=== PATIENT | female | born 1980 | race Caucasian/White ===

== ENCOUNTER 2025-06-18 08:22 | Outpatient (CLI) | payer MEDICARE, MEDICAID, SELFPAY ==
--- OUTSIDE RECORDS SUMMARY | 2020-09-22 06:30 | XMS_ITS | Continuity of Care Document ---
Author Organization [facility] Address [address] [facility] [address] [place] [address] Phone Care Team Providers Care Laborer Mine Name Role Phone Sachi Deng Unavailable Unavailab le Allergies, Adverse Reactions, Alerts Substance Reaction Status Criticality levofloxacin Active No Information Medications Medication Instructions Dosage Effective Dates (start - stop) Status Comments Ultram 50 mg tablet take 1 tablet (50MG) by oral route every 6 hours as needed - Active cyclobenzaprine 10 mg tablet take 1 tablet by oral route 2 times every day 10 MG - Active Mobic 15 mg tablet take 1 tablet by ora l route every day - Active pregabalin 50 mg capsule - A ctive estradiol 1 mg tablet - Acti ve tramadol 50 mg tablet - Acti ve Narcan 4 mg/actuation nasal spray - Active topiramate 25 mg tablet - Ac tive trazodone 50 mg tablet - Act saad alprazolam 0.5 mg tablet - A ctive escitalopram 10 mg tablet - Active Vraylar 6 mg capsule - Activ e Bystolic 5 mg tablet - Activ e gabapentin 600 mg tablet - A ctive omeprazole 20 mg capsule,delayed release - Active duloxetine 30 mg capsule,delayed release - Active butalbital-acetaminophen -caffeine 50 mg-325 mg-40 mg tablet - Active diclofenac sodium 75 mg tablet,delayed release - Active ondansetron HCl 4 mg tablet - Active desoximetasone 0.05 % topical ointment - Active Procedures Procedure Date OFFICE/OUTPATIENT VISIT EST POSTOP FOLLOW-UP VISIT X-RAY HIP UNI W PELVIS 2-3 VIEWS 2019 POSTOP FOLLOW-UP VISIT X-RAY EXAM HIP UNI W PELVIS 2-3 VIEWS Se POSTOP FOLLOW-UP VISIT TREAT THIGH FRACTURE Advance Directives Directive Yes / No Effective Date File Name No Information Encounters Encounter Description Practice Location Reason(s) For Visit Diagnoses Date Provider Providers Copied on Encounter OFFICE/OUTPAT IENT VISIT EST [facility], [address], [address], [place] tel:[phone] [facility] Displaced fracture of base of neck of right femur, subsequent encounter for closed fracture with routine healingSurgery follow-upAcute low back pain, unspecified back pain laterality, unspecified whether sciatica presentSpinal stenosis of lumbar region, unspecified whether neurogenic claudication present 0 Boxdorfer Sachi. [address], [id number]. tel:[phone] [facility], [address], [address], [place] tel:[phone] [facility] Displaced fracture of base of neck of right femur, subsequent encounter for closed fracture with routine healing 0 Boxdorfer Sachi. [address], [id number]. tel:[phone] [facility], [address], [address], [place] tel:[phone] [facility] No Information 0 Jessica Hooks. [address] [place], [place], [id number]. tel:[phone] [facility], [address], [address], [place] tel:[phone] [facility] No Information 3 0 Fissel Jessee. [address] [place], [place], [id number]. tel:[phone] [facility], [address], [address], [place] tel:[phone] [facility] Displaced fracture of base of neck of right femur, subsequent encounter for closed fracture with routine healing Jul-0 1-202 0 Boxdorfer Sachi. [address], [id number]. tel:[phone] [facility], [address], [address], [place] tel:[phone] [facility] No Information Jun-0 8-202 0 Fissel Jessee. [address] [place], [place], [id number]. tel:[phone] [facility], [address], [address], [place] tel:[phone] [facility] Displaced fracture of base of neck of right femur, subsequent encounter for closed fracture with routine healingBody mass index (BMI) 40.0-44.9, adult Sep-0 3202 0 Boxdorfer Sachi. [address], [id number]. tel:[phone] Referring Provider: Alexis Hernadez, [address] [place] [address] , [place], [address]. tel:[phone] [facility], [address], [address], [place] tel:[phone] [facility] Closed displaced basicervical fracture of right femur, initial encounter 0-202 0 Fissel Jessee. [address] [place], [place], [id number]. tel:[phone] Family History Family Member Type Diagnosis Age At Onset Mother Problem malignant neopla sm of breast in first degree relative Father Problem Alive and well Payers Payer name Insurance type Covered green party ID Aggie winn(s) Medicare [id number] [id number] Social History Type Description Quantity Date Captured Comments Alcohol Use Details Unknown Caffeine Use Details Unknown Tobacco Use Status No Information Smoking Status No Information Sex Female Chief Complaint And Reason For Visit No Information Reason For Referral Reason For Referral No Information Plan Of Treatment Date Type Action Status Referral Ordered: X-RAY HIP UNI W PELVIS 2-3 VIEWS RT ordered Referral Ordered: X-RAY EXAM HIP UNI W PELVIS 2-3 VIEWS RT ordered History Of Present Illness Encounter Date Complaint History Of Prese nt Illness No Information Functional Status Date Functional Assessmen t No Information Instructions Date Instruction Additional Infor mation Discussed treatment options Rela deon to Surgery follow-up INFORM PHYSCIAN OF IINCREASED PA IN Related to Displaced fracture of base of neck of right femur, subsequent encounter for closed fracture with routine healing INFORM PHYSICIAN OF INCREASED PA IN Related to Displaced fracture of base of neck of right femur, subsequent encounter for closed fracture with routine healing Giving encouragement to exercise Related to Body mass index (BMI) 40.0-44.9, adult INFORM PHYSICIAN OF INCREASED PA IN Related to Displaced fracture of base of neck of right femur, subsequent encounter for closed fracture with routine healing Assessments Type Assessment Date assessment Displaced fracture o f base of neck of right femur, subsequent encounter for closed fracture with routine healing assessment Surgery follow-up assessment Acute low back pain, unspecified back pain laterality, unspecified whether sciatica present assessment Spinal stenosis of l umbar region, unspecified whether neurogenic claudication present Patient Care Teams Name Effective Dates (start - stop) Status Members No Information
--- OUTSIDE RECORDS SUMMARY | 2025-06-18 08:39 | XMS_ITS | Clinical Summary ---
Author Organization [facility] [address] [place] [address] [place] [phone] Care Team Providers Care Supervisor Drapery Hanging Name Role Phone Kush Melissa MD Primary Care Provi alvarado Allergies Active Allergy Reactions Criticality Noted Date Comments Levofloxacin Hives Medium Ziprasidone Hives,Other (See comments) Medium 05/24/20 15 Medications acetaminophen (TYLENOL) 500 mg tablet Take 1 tablet (500 mg total) by mouth every 6 (six) hours as needed 2 Active estradioL (ESTRACE) 0.5 mg tablet Take 1 tablet (0.5 mg total) by mouth daily 3 Active SUMAtriptan (IMITREX) 100 mg tabletIndications :Migraine Take 1 tablet (100 mg total) by mouth once as needed for migraine May repeat after 2 hours. 27 tablet [address] (PROTONIX) 40 mg EC tablet Take 1 tablet (40 mg total) by mouth daily 90 tablet 3 4 Active linaCLOtide (Linzess) 72 mcg capsuleIndication s:Drug-induced constipation Take 1 capsule (72 mcg total) by mouth daily Take without food 90 capsule 3 5 Active rosuvastatin (CRESTOR) 20 mg tablet Take 1 tablet (20 mg total) by mouth daily 90 tablet 1 5 Active celecoxib (CeleBREX) 200 mg capsuleIndication s:Fibromyalgia Take 1 capsule (200 mg total) by mouth 2 (two) times a day as needed for pain 180 capsule 3 5 Active amitriptyline (ELAVIL) 150 mg tabletIndications :Fibromyalgia,Ins omnia, unspecified type Take 1 tablet (150 mg total) by mouth nightly 90 tablet 3 5 Active cariprazine (Vraylar) 4.5 mg capsule capsuleIndication s:Mood disorder Take 1 capsule (4.5 mg total) by mouth daily 30 capsule 5 5 Active gabapentin (NEURONTIN) 400 mg capsuleIndication s:Fibromyalgia Take 1 capsule (400 mg total) by mouth 3 (three) times a day 270 capsule 3 5 Active clonazePAM (KlonoPIN) 0.5 mg tablet Take 1 tablet (0.5 mg total) by mouth 2 (two) times a day as needed for anxiety 60 tablet 5 5 Active buprenorphine-nal oxone (SUBOXONE) 2-0.[address] 1 Film under the tongue daily 30 Film 5 5 Active prochlorperazine (COMPAZINE) 5 mg tabletIndications :Nausea and Vomiting Take 1 tablet (5 mg total) by mouth every 8 (eight) hours as needed for nausea or vomiting 20 tablet 3 5 Active nicotine polacrilex (NICORETTE) 4 mg gum Chew 1 each (4 mg total) as needed for smoking cessation Active DULoxetine DR (CYMBALTA) 30 mg capsuleIndication s:Fibromyalgia,Mo od disorder 1 cap PO daily x 1 week, then 2 caps daily 60 capsule 5 Active minocycline (MINOCIN,DYNACIN) 100 mg capsuleIndication s:Hidradenitis suppurativa Take 1 capsule (100 mg total) by mouth daily 90 capsule 1 5 Active fluticasone furoate-vilantero L (BREO ELLIPTA) 100-25 mcg/dose diskus inhalerIndication s:Maintenance Therapy for Asthma Inhale 1 puff daily Rinse mouth with water after use. Do not swallow. 1 each 5 Active Active Problems Problem Noted Date Diagnosed Date Chronic migraine without aur a without status migrainosus, not intractable 11/30/2023 Irregular periods 11/29/2023 Mucopurulent chronic bronchitis 09/25/2023 Cigarette nicotine dependence without complicati on 06/14/2023 Mild intermittent asthma with exacerbation 06/14 Cyclical vomiting syndrome 07/05/2022 Postcholecystectomy syndrome 07/05/2022 Chronic bilateral low back pain with bilateral s ciatica 01/04/2022 Borderline personality disorder 02/06/2021 PTSD (post-traumatic stress disorder) 02/06/2021 Autoimmune hemolytic anemia 08/05/2020 Insomnia 06/15/2020 History of paroxysmal supraventricular tachycard ia 09/18/2019 Polysubstance abuse 09/18/2019 Fibromyalgia 07/03/2019 Hidradenitis suppurativa 07/03/2019 Hypercholesterolemia 01/09/2019 ALEXIS (obstructive sleep apnea) 06/13/2017 Obstructive sleep apnea syndrome 06/13/2017 Gastro-esophageal reflux disease without esophag itis 04/03/2017 Supraventricular tachycardia 08/27/2014 Resolved Problems Problem Noted Date Diagnosed Date Resolved Date Female genital symptoms 11/29/2023 09/0 02/2024 Leukocytosis 08/11/2022 06/14/2023 Epigastric pain 07/05/2022 06/20/2024 Spinal stenosis of lumbar region 01/04/2022 06/14/2023 Tobacco user 01/04/2022 06/14/2023 Acute low back pain 01/04/2022 06/14/20 23 Closed basicervical fracture of femur 01/04/2022 06/14/2023 Sleep apnea 01/04/2022 06/14/2023 Morbid (severe) obesity due to excess calories 01/04/2022 08/01/2022 Body mass index 40.0-44.9, adult ([facility]) 01/04/2022 06/14/2023 Visual disturbance 06/03/2021 Dyspnea on exertion 06/03/2021 06/14/20 Intermittent claudication 06/03/2021 Chronic bilateral low back pain with sciatica 04/21/2006/14/2023 Centrilobular emphysema 12/07/2020 08 Fatigue 12/07/2020 06/14/2023 Herpes simplex 08/05/2020 06/14/2023 Primary fibromyalgia syndrome 08/05/2020 06/14/2023 Closed displaced fracture of base of neck of right femur 06/15/2020 06/14/2023 Closed fracture of left hip 06/15/2020 06/14/2023 Bipolar 1 disorder 06/15/2020 Anxiety with somatization 09/18/2019 Bipolar I disorder with anxious distress 09/18/2019 06/14/2023 Cigarette smoker 09/18/2019 06/14/2023 Depression with somatization 09/18/2019 06/14/2023 Menorrhagia with irregular cycle 09/18/2019 06/14/2023 Dysmenorrhea 09/18/2019 06/14/2023 Obstructive sleep apnea syndrome 09/18/2019 06/14/2023 Bipolar affective disorder, current episode mixed 08/17/2019 06/14/2023 Intertrigo 07/03/2019 06/14/2023 Cellulitis of chest wall 05/31/2018 Breast lump 05/22/2018 06/20/2024 Overview (11/29/2023): Breast mass; Progress: Stable Added By: Sandra Khalil Add to Current Problems: NO ProblemStatus: Resolve Unspecified lump in breast; Progress: Stable Added By: Sandra Khalil Add to Current Problems: YES ProblemStatus: Current Breast mass; Location: None Progress: Stable Added By: Sandra Khalil Add to Current Problems: YES ProblemStatus: Current Breast mass; Location: None Progress: Stable Added By: Lucero Osorio Add to Current Problems: NO ProblemStatus: Resolve Nicotine dependence 08/28/2017 08/01/20 22 Acquired elevated diaphragm 05/16/2017 06/14/2023 Chest pain 05/16/2017 06/14/2023 Chronic cough 05/16/2017 06/14/2023 Exertional dyspnea 05/16/2017 Parasomnia 01/09/2017 08/01/2022 Abnormal findings on diagnos tic imaging of breast 10/20/2016 06/14/2023 Overview (06/14/2023): Other (abnormal) findings on radiological examination of breast; Location: None Progress: Stable Added By: Isabelle Botello Add to Current Problems: YES ProblemStatus: Current Other (abnormal) findings on radiological examination of breast; Progress: Stable Added By: Isabelle Botello Add to Current Problems: NO ProblemStatus: Resolve BMI 40.0-44.9, adult 08/31/2016 024 Snoring 08/31/2016 08/01/2022 Nonorganic sleep disorder 07/12/2016 Palpitations 08/27/2014 08/01/2022 Encounters Date Type Department Care Team Description 05/28/2025 Results Follow-Up [facility] [address] [facility] [address] [place] [address] [address] Hip Right WO Contrast 05/27/2025 Telephone [facility] [address] [facility] [address] [place] [phone] Kush Melissa MD Test Results 05/27/2025 Orders Only [facility] [address] [facility] [address] [place] [phone] Tracy Childress NP Right hip pain; Abnormal finding on imaging 05/21/2025 Telephone [facility] [address] [facility] [address] [place] [phone] Kush Melissa MD Additional Services Or Orders; Call Back 05/13/2025 Telephone [facility] [address] [facility] [address] [place] [phone] Kush Melissa MD Forms Request 05/12/2025 Results Follow-Up [facility] [address] [facility] [address] [place] [phone] Kush Melissa MD H. pylori breath test, XR Hip Right 2+ Vw 05/08/2025 11:00 AM CDT Ancillary Procedure [facility] [address] [address] Right hip pain 05/08/2025 10:55 AM CDT Lab [facility] [address] [address] Chronic vomiting 05/07/2025 1:45 PM CDT Office Visit [facility] [address] [phone] Tracy Childress NP Fibromyalgia (Primary Dx); Mood disorder; Right hip pain; Chronic back pain, unspecified back location, unspecified back pain laterality; Chronic vomiting; Hidradenitis suppurativa; Cigarette nicotine dependence without complication; Chronic bronchitis, unspecified chronic bronchitis type (HCC) 04/26/2025 Nurse Triage [facility] [address] [phone] Kush Melissa MD 04/22/2025 Telephone [facility] [address] [phone] Kush Melissa MD Symptom Based Call; Medical Question/Miscellane ous 03/24/2025 Results Follow-Up [facility] [address] [phone] Kush Melissa MD [facility] COLONOSCOPY from Last 3 Months Immunizations Immunization Administration Dates Next Due DTP 06/08/1990, 5,02/14/1983,12/13,10/04/1982 Hep A, Adult 11/14/2000 Hep A, Unspecified 11/14/2000 Influenza, Quad, Adjuvantate d, Intramuscular 11/11/2024(Deferred: Patient Refused) Influenza, Quadrivalent, Spl it, Intramuscular 03/02/2015,12/01/2014,09/01/2014,07/07,05/30/2014,05/16/2014,04/28/2014 ,03/31/2014,03/07/2014 Influenza, Unspecified 11/11/2024(Deferr ed: Patient Refused),11/11/2024(Deferred: Patient Refused),12/17/2023(Deferred: Patient Refused),06/14/2023(Deferred: Patient Refused),03/02/2015,12/01/2014, 014,07/07/2014,05/30/2014,05/16/2014,0 04/28/2014,03/31/2014,03/07/2014 MMR 06/08/1990,10/04/1982 OPV 06/08/1990, 5,02/14/1983,12/13,10/04/1982 Tdap 03/05/2022,04/09/2015,10/16/2014 Surgical History Surgery Date Site/Laterality Comments HIP SURGERY HYSTERECTOMY BILATERAL OOPHORECTOMY 10/16/2018 - 10/15/2019 FRACTURE SURGERY CHOLECYSTECTOMY JOINT REPLACEMENT SPINE SURGERY Medical History Medical History Date Comments Diabetes mellitus (HCC) Anxiety Depression Hypertension Hyperlipidemia Sleep difficulties GERD (gastroesophageal reflux disease) Hemolytic anemia SVT (supraventricular tachycardia) Fibromyalgia Bipolar 1 disorder (HCC) Lumbar stenosis History of femur fracture right Arthritis Chronic bronchitis (HCC) Emphysema of lung Migraines Sleep apnea Family History Medical History Relation Name Comments No Known Problems Brother Fibromyalgia Father No Known Problems Maternal Grandfather No Known Problems Maternal Grandmother Breast cancer Mother Megha Khalil Cancer Mother Megha Khalil Obesity Mother Megha Khalil Arthritis Mother's Sister 1 Mi, Zoila, Isa COPD Mother's Sister 2 Mi Stroke Mother's Sister 3 Zoila No Known Problems Paternal Grandfather Mental illness Paternal Grandmother Cherry Relation Name Status Comments Brother Alive Father Alive Maternal Grandfather Maternal Grandmother Mother Megha Khalil Alive Mother's Sister 1 Mi, Zoila, Isa Mother's Sister 2 Mi Mother's Sister 3 Zoila Paternal Grandfather Paternal Grandmother Cherry Social History Tobacco Use Types Packs/Day Years Used Date Smoking Tobacco: Every Day Cigarettes 0.5 30.7 Started: 1994 Vaping Smokeless Tobacco: Never Tobacco Cessation:Ready to Q uit: Not Asked; Counseling Given: Not Answered Comments:pt stated smokes 2 cig and mostly vaping 06/14/23 3 DAYS NICOTINE FREE Alcohol Use Standard Drinks/Week Comments Yes 0 (1 standard drink = 0.6 oz pur e alcohol) monthly or less AUDIT-C Answer Date Recorded Q1: How often do you have a drink containing alcohol? Never 05/12/2022 Q2: How many drinks containi ng alcohol do you have on a typical day when you are drinking? Patient does not drink Q3: How often do you have si x or more drinks on one occasion? Never 05/12/2022 PHQ-2 Answer Date Recorded PHQ-2 Total Score 4 05/07/2025 PHQ-9 Answer Date Recorded PHQ-9 Total Score 20 05/07/2025 Personal Safety Answer Date Recorded Getting School Help Needed Denies 09/25 Comments No Sex and Gender Information Value Date Recorded Sex Assigned at Not on file Legal Sex Female 8:28 PM [employer] Gender Identity Not on file Sexual Orientation Not on file Obstetrics History Last Filed Vital Signs Vital Sign Reading Time Taken Comments Blood Pressure 110/72 05/07/2025 1:26 PM CDT Pulse 96 05/07/2025 1:26 PM CDT Temperature 36.9 C (98.5 F) 03/04/2024 1:59 PM CDT Respiratory Rate 18 05/07/2025 1:26 PM CDT Oxygen Saturation 96% 05/07/2025 1:26 PM CDT Inhaled Oxygen Concentration - - Weight 88.5 kg (195 lb) 05/07/2025 1:26 PM CDT Height 152.4 cm (5') 05/07/2025 1:26 PM CDT Body Mass Index 38.08 05/07/2025 1:26 PM CDT Plan of Treatment Health Maintenance Due Date Last Done Comments Breast Cancer Screening-Mammogram 1979 Hepatitis C Screening 1979 Hepatitis B Screening 1997 Pneumococcal vaccine <65 (1 of 2 - PCV) 1998 HPV Vaccines (1 - 3-dose SCDM series) 2006 Influenza Vaccine (#1) 2025 5, 03/02/2015, 12/01/2014, Additional history exists Regular Well Visit/Exam 18-64 06/20/2025 06/20/2024, 06/14/2023, 06/13/2022 Covid-19 Vaccine ( season) 2025 04/21/2021, 03/24/2021 Postponed from 06/16/2024 (Patient declined, but will receive in the future) Depression Screening 05/07/2026 05/07/2025, 03/12/2025, 03/12/2025, Additional history exists Colon Cancer Screening-Colonoscopy 03/13/2030 03/13/2025, 07/14/2022 DTaP/Tdap/Td Vaccine (9 - Td or Tdap) 03/05/2032 03/05/2022, 04/09/2015, 10/16/2014, Additional history exists Procedures Procedure Name Priority Date/Time Associated Diagnosis Comments CT HIP RIGHT WO CONTRAST Schedule Routine, Read Routine (OP Routine) 05/22/2025 8:56 AM CDT Right hip pain Abnormal finding on imaging H. PYLORI BREATH TEST Routine 05/08/2025 11:15 AM CDT Chronic vomiting XR HIP RIGHT 2 OR 3 VIEWS Schedule Routine, Read Routine (OP Routine) 05/08/2025 11:05 AM CDT Right hip pain HM COLONOSCOPY Routine 03/13/2025 from Last 3 Months or Most Recently Relevant to Health Maintenance Results * CT Hip Right WO Contrast (05/22/2025 8:56 AM CDT) Anatomical Region Laterality Modality Lower Extremities Right Computed Tomog edgar Tracy Childress FLOOR WORKER [employer] IMG CT PROCEDURES Final Res ult * H. pylori breath test (05/08/2025 11:15 AM CDT) H. pylori, breath test Negative Negative [facility] ref [facility] Comment: Result indicates the absence of current Helicobacter pylori infection. Test Performed by: [facility] - [address] [address] Supervisor Ride Assembly: Tomer Warren Ph.D.; CLIA# [id number] Breath 05/08/2025 11:1 5 AM CDT 05/08/2025 4:19 PM CDT Tracy Childress FLOOR WORK[employer] LAB BODY FLUIDS AND STOOLS ORDERABLES Final Result RE[facility] [id number] [facility] Department [place] [address] [facility] ref Lab * XR Hip Right 2+ Vw (05/08/2025 11:05 AM CDT) Anatomical Region Laterality Modality Lower Extremities, Hip, Pelvis Right C omputed Radiography 05/15/2025 9:06 PM CDT Narrative 05/15/2025 9:09 PM CDT EXAM DESCRIPTION: 1. XR HIP RIGHT 2 OR 3 VIEWS REASON FOR STUDY: R hip pain Hardware put in right hip May 2020, right hip pain 2 months FINDINGS: Two views submitted with comparison 10/25/2022. Redemonstrated is an internally fixated right femoral neck fracture with shortening. The fracture line remains visible. Mild right hip osteoarthritis. Inferior lumbar degenerative disc disease with facet osteoarthritis. IMPRESSION: 1. Unchanged internally fixated right femoral neck fracture with shortening. The fracture line remains visible. This can be further evaluated with CT to assess the degree of bony bridging. THIS IS AN ELECTRONICALLY VERIFIED FINAL REPORT 05/15/2025 9:09 PM - Electronically signed by Jaun Terry M.D. T: Report ID: [id number] Reading Location: [place] [address] Procedure Note Jaun Terry MD - 05/15/2025 EXAM DESCRIPTION: 1. XR HIP RIGHT 2 OR 3 VIEWS REASON FOR STUDY: R hip pain Hardware put in right hip May 2020, right hip pain 2 months FINDINGS: Two views submitted with comparison 10/25/2022. Redemonstrated is an internally fixated right femoral neck fracture with shortening. The fracture line remains visible. Mild right hip osteoarthritis. Inferior lumbar degenerative disc disease with facet osteoarthritis. IMPRESSION: 1. Unchanged internally fixated right femoral neck fracture withshortening. The fracture line remains visible. This can be further evaluated with CTto assess the degree of bony bridging. THIS IS AN ELECTRONICALLY VERIFIED FINAL REPORT 05/15/2025 9:09 PM - Electronically signed by Jaun Terry M.D. T: Report ID: [id number] Reading Location: [place] [address] us Tracy Childress FLOOR WORK[employer] IMG XR PROCEDURES Final Res ult * HM COLONOSCOPY (03/13/2025) 03/13/2025 Historical Provider HEALTH MAINTENANCE Final Result from Last 3 Months or Most Recently Relevant to Health Maintenance Insurance [employer] MEDICARE IDPA IDPA [facility] MEDICARE ADVANTAGE [facility] MEDICARE Address: [address] [address] [place] [address] Care Teams Supervisor Drapery Hanging Relationship Specialty Start Date End Date Kush Melissa MD [address] [place] [address] PCP - General Family Medicine 01/27/23
--- OUTSIDE RECORDS SUMMARY | 2025-06-18 08:39 | XMS_ITS | Encounter Summary ---
Author Organization [facility] Healthcare Address [address] [place] [address] Care Team Providers Care Supervisor Tower Name Role Phone Kush Melissa MD Primary Care Provi alvarado Encounter Details Date Type Department Care Team (Late st Contact Info) Description 05/28/2025 Results Follow-Up [facility] Family Medicine [address] [place] [address] Tracy Childress NP [address] [place], [place] [id number] [place] Hip Right WO Contrast Social History Tobacco Use Types Packs/Day Years Used Date Smoking Tobacco: Every Day Cigarettes 0.5 30.7 Started: 1994 Vaping Smokeless Tobacco: Never Comments:pt stated smokes 2 cig and mostly [...] on file 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 Does message need to be routed? Yes-Action Needed documented in this encounter Plan of Treatment Not on file documented as of this encounter Visit Diagnoses Not on filedocumented in this encounter Care Teams Supervisor Tower Relationship Specialty Start Date End Date Kush Melissa MD [address] [address] PCP - General Family Medicine 01/27/23 documented as of this encounter
--- OUTSIDE RECORDS SUMMARY | 2025-06-18 08:40 | XMS_ITS | Encounter Summary ---
Author Organization [facility] Address [address] [place] [address] Phone Care Team Providers Care Tearoom Hostess Name Role Phone Ryder Chavez Primary Care Provider [phone] Kush Melissa MD Primary Care Provi alvarado Encounter Details Date Type Department Care Team (Late st Contact Info) Description 11/10/2022 Telephone [facility] Medicine Scheduling [address] [place] [address] Berna Coleman CMA Social History Tobacco Use Types Packs/Day Years Used Date Smoking Tobacco: Heavy Smoker Cigarettes 0.1 30.2 Started: 03/24/1995 Vaping Smokeless Tobacco: Never Comments:pt stated smokes 2 cig and mostly vaping Alcohol Use Standard Drinks/Week Comments Yes 0 [...] PHQ-2 Answer Date Recorded PHQ-2 Total Score (If total score is 3 or more points, staff should administer the PHQ-9) 0 06/13/2022 Comments Unknown Sex and Gender Information Value Date Recorded Sex Assigned at Not on file 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 Gender Identity Not on file Sexual Orientation Not on file documented as of this encounter Plan of Treatment Not on file documented as of this encounter Visit Diagnoses Not on filedocumented in this encounter Additional Health Concerns Infection Onset Date Last Indicated Resolved Time COVID: Suspected 03/04/2024 03/04/2024 03/04/2024 2:23 PM CDT documented as of this encounter Care Teams Tearoom Hostess Relationship Specialty Start Date End Date Ryder Chavez PA [address] [id number] PCP - General Family Medicine 06/07/22 01/26/23 Kush Melissa MD [address] [address] PCP - General Family Medicine 01/27/23 documented as of this encounter
--- OUTSIDE RECORDS SUMMARY | 2025-06-18 08:40 | XMS_ITS | Encounter Summary ---
Author Organization [facility] Facility Care Team Providers Care Produce Assistant Name Role Phone Alexis Valles MD Primary Care Provider + [phone] Jeanine Lo LPN Unavailable + [phone] Le Torres Primary Care Provider Alexis Valles MD Primary Care Provider + [phone] Ryder Chavez Primary Care Provider [phone] Kush Melissa MD Primary Care Provi alvarado Encounter Details Date Type Department Care Team (Latest Contact Info) Description 10/17/2017 Orders Only [facility] CLINCON[facility] ProviderMiriam MD [address] [place] [address] Social History Tobacco Use Types Packs/Day Years Used Date Smoking Tobacco: Never Assessed Comments Unknown Sex and Gender Information Value Date Recorded Sex Assigned at Not on file 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 Historical Provider Final Res ult documented in this encounter Visit Diagnoses Not on filedocumented in this encounter Additional Health Concerns Infection Onset Date Last Indicated Resolved Time COVID: Suspected 03/04/2024 03/04/2024 03/04/2024 2:23 PM CDT documented as of this encounter Care Teams Produce Assistant Relationship Specialty Start Date End Date Alexis Valles MD PCP - General Family Medicine 05/29/18 07/14/20 eL Torres PA [address] [place] [address] [address] [place] [address] PCP - General 07/15/20 09/15/20 Alexis Vlales MD PCP - General Family Medicine 09/16/20 06/06/22 Ryder Chavez PA [address] [place] [address] PCP - General Family Medicine 06/07/22 01/26/23 Kush Melissa MD [address] [place] [address] PCP - General Family Medicine 01/27/23 Jeanine Lo LPN [address] [place] [address] [address] [place] [address] Billing Rep 05/29/18 05/29/18 documented as of this encounter
--- OUTSIDE RECORDS SUMMARY | 2025-06-18 08:40 | XMS_ITS | Encounter Summary ---
Author Organization [facility] Facility Care Team Providers Care Comparator Operator Name Role Phone Alexis Valles MD Primary Care Provider + [phone] Jeanine Lo LPN Unavailable + [phone] Le Torres Primary Care Provider Alexis Valles MD Primary Care Provider + [phone] Ryder Chavez Primary Care Provider +- [phone] Kush Melissa MD Primary Care Provi alvarado Encounter Details Date Type Department Care Team (Latest Contact Info) Description 03/25/2018 Orders Only [facility] CLINCON[facility] ProviderMiriam MD [address] [place] [address] Social History Tobacco Use Types Packs/Day Years Used Date Smoking Tobacco: Never Assessed Comments Unknown Sex and Gender Information Value Date Recorded Sex Assigned at Not on file 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 Historical Provider Final Res ult * SCAN - LABS (03/26/2018 12:00 AM CDT) Narrative 03/26/2018 12:00 AM CDT Ordered by an unspecified provider. [facility] Provider Final Res ult * SCAN - LABS (03/26/2018 12:00 AM CDT) Narrative 03/26/2018 12:00 AM CDT Ordered by an unspecified provider. [facility] Provider Final Res ult * SCAN - LABS (03/26/2018 12:00 AM CDT) Narrative 03/26/2018 12:00 AM CDT Ordered by an unspecified provider. [facility] Provider Final Res ult * SCAN - LABS (03/26/2018 12:00 AM CDT) Narrative 03/26/2018 12:00 AM CDT Ordered by an unspecified provider. [facility] Provider Final Res ult documented in this encounter Visit Diagnoses Not on filedocumented in this encounter Additional Health Concerns Infection Onset Date Last Indicated Resolved Time COVID: Suspected 03/04/2024 03/04/2024 03/04/2024 2:23 PM CDT documented as of this encounter Care Teams Comparator Operator Relationship Specialty Start Date End Date Alexis Valles MD PCP - General Family Medicine 05/29/18 07/14/20 Le Torres PA [address] [place] [address] Dr Torres [address] [place] [address] PCP - General 07/15/20 09/15/20 Alexis Valles MD PCP - General Family Medicine 09/16/20 06/06/22 Ryder Chavez PA [address] [address] PCP - General Family Medicine 06/07/22 01/26/23 Kush Melissa MD [address] [address] PCP - General Family Medicine 01/27/23 Jeanine Lo, HEBREW TEACHER [address] [place] [address] [address] [place] [address] Financial Solutions Advisor 05/29/18 05/29/18 documented as of this encounter
--- OUTSIDE RECORDS SUMMARY | 2025-06-18 08:40 | XMS_ITS | Encounter Summary ---
Author Organization [facility] Facility Care Team Providers Care Licensed Psychologist Manager Name Role Phone Alexis Valles MD Primary Care Provider + [phone] Jeanine Lo LPN Unavailable + [phone] Le Torres Primary Care Provider Alexis Valles MD Primary Care Provider + [phone] Ryder Chavez Primary Care Provider +- [phone] Kush Melissa MD Primary Care Provi alvarado Encounter Details Date Type Department Care Team (Latest Contact Info) Description 03/30/2018 Orders Only [facility]IN[facility] ProviderMiriam MD [address] [place] [address] Social History Tobacco Use Types Packs/Day Years Used Date Smoking Tobacco: Never Assessed Comments Unknown Sex and Gender Information Value Date Recorded Sex Assigned at Not on file 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 Historical Provider Final Res ult documented in this encounter Visit Diagnoses Not on filedocumented in this encounter Additional Health Concerns Infection Onset Date Last Indicated Resolved Time COVID: Suspected 03/04/2024 03/04/2024 03/04/2024 2:23 PM CDT documented as of this encounter Care Teams Licensed Psychologist Manager Relationship Specialty Start Date End Date Alexis Valles MD PCP - General Family Medicine 05/29/18 07/14/20 eL Torres PA [address] [place] [address] [address] [place] [address] PCP - General 07/15/20 09/15/20 Alexis Valles MD PCP - General Family Medicine 09/16/20 06/06/22 Ryder Chavez PA [address] [place] [address] PCP - General Family Medicine 06/07/22 01/26/23 Kush Melissa MD [address] [place] [address] PCP - General Family Medicine 01/27/23 Jeanine Lo LPN [address] [facility] [place] [address] Customer Orders Clerk 05/29/18 05/29/18 documented as of this encounter
--- OUTSIDE RECORDS SUMMARY | 2025-06-18 08:40 | XMS_ITS | Encounter Summary ---
Author Organization [facility] Facility Care Team Providers Care Weigher And Crusher Name Role Phone Alexis Valles MD Primary Care Provider + [phone] Jeanine Lo LPN Unavailable + [phone] Le Torres Primary Care Provider Alexis Valles MD Primary Care Provider + [phone] Rydre Chavez Primary Care Provider +- [phone] Kush Melissa MD Primary Care Provi alvarado Encounter Details Date Type Department Care Team (Latest Contact Info) Description 05/11/2017 Orders Only [facility]INCON[facility] ProviderMiriam MD [address] [place] [address] Social History Tobacco Use Types Packs/Day Years Used Date Smoking Tobacco: Never Assessed Comments Unknown Sex and Gender Information Value Date Recorded Sex Assigned at Not on file 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 Historical Provider Final Res ult documented in this encounter Visit Diagnoses Not on filedocumented in this encounter Additional Health Concerns Infection Onset Date Last Indicated Resolved Time COVID: Suspected 03/04/2024 03/04/2024 03/04/2024 2:23 PM CDT documented as of this encounter Care Teams Weigher And Crusher Relationship Specialty Start Date End Date Alexis Valles MD PCP - General Family Medicine 05/29/18 07/14/20 Le Torres PA [address] [place] [address] [address] [place] [address] PCP - General 07/15/20 09/15/20 Alexis Valles MD PCP - General Family Medicine 09/16/20 06/06/22 Ryder Chavez PA [address] [place] [address] PCP - General Family Medicine 06/07/22 01/26/23 Kush Melissa MD [address] [place] [address] PCP - General Family Medicine 01/27/23 Jeanine Lo LPN [address] [facility] [address] [place] [address] Butadiene Converter Operator 05/29/18 05/29/18 documented as of this encounter
--- OUTSIDE RECORDS SUMMARY | 2025-06-18 08:40 | XMS_ITS | Encounter Summary ---
Author Organization [facility] Facility Care Team Providers Care Transfusion Aide Name Role Phone Alexis Valles MD Primary Care Provider + [phone] Jeanine Lo LPN Unavailable + [phone] Le Torres Primary Care Provider Alexis Valles MD Primary Care Provider + [phone] Ryder Chavez Primary Care Provider +- [phone] Kush Melissa MD Primary Care Provi alvarado Encounter Details Date Type Department Care Team (Latest Contact Info) Description 05/22/2017 Orders Only [facility] CLINCON[facility] ProviderMiriam MD [address] [place] [address] Social History Tobacco Use Types Packs/Day Years Used Date Smoking Tobacco: Never Assessed Comments Unknown Sex and Gender Information Value Date Recorded Sex Assigned at Not on file 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 Historical Provider Final Res ult documented in this encounter Visit Diagnoses Not on filedocumented in this encounter Additional Health Concerns Infection Onset Date Last Indicated Resolved Time COVID: Suspected 03/04/2024 03/04/2024 03/04/2024 2:23 PM CDT documented as of this encounter Care Teams Transfusion Aide Relationship Specialty Start Date End Date Alexis Valles MD PCP - General Family Medicine 05/29/18 07/14/20 Le Torres PA [address] [place] [address] [address] [place] [address] PCP - General 07/15/20 09/15/20 Alexis Valles MD PCP - General Family Medicine 09/16/20 06/06/22 Ryder Chavez PA [address] [place] [address] PCP - General Family Medicine 06/07/22 01/26/23 Kush Melissa MD [address] [place] [address] PCP - General Family Medicine 01/27/23 Jeanine Lo LPN [address] [place] [address] Packager Head 05/29/18 05/29/18 documented as of this encounter
--- NOTE | 2025-07-11 21:08 | WPDSLEEPSTUD ---
Sleep Study Date of Study: 06/18/25 Ordering Provider: Westley Cody, Interpreting Physician: Suzette Dia MD Sleep Study Type: Polysomnogram Height: 1.52 m Weight: 81.647 kg Body Mass Index: 35.2 Neck Circumference (inches): 16 [place]: 22 Reason for Sleep Study Hypersomnolence; has used CPAP in the past Sleep History Jessica Khalil is a 44-year-old woman with excessive daytime sleepiness, falls asleep in adventism and other places when she has no intention of sleeping. She has used CPAP previously. She frequently awakens from sleep short of breath. She occasionally wakes at night with heartburn, belching or coughing.??She constantly snores, occasionally snores loudly enough that others complain. She frequently has trouble sleeping when she has a cold. She occasionally wakes up gasping for breath during the night. She frequently has breathing problems at night observed by others. She occasionally sweats excessively at night. She occasionally notices her heart pounding or beating irregularly during the night. She frequently falls asleep during the day. She occasionally falls asleep involuntarily, rarely falls asleep while driving. She never experiences loss of muscle tone with strong emotion. She rarely feels paralyzed on waking or falling asleep. She occasionally experiences vivid dreams upon waking or falling asleep. She frequently feels afraid of going to sleep. She occasionally has nightmares. She rarely recalls her dreams. She constantly has thoughts racing through her mind. She frequently feels sad, depressed, and anxious. She rarely notices parts of her body jerk. She rarely kicks during the night. She constantly feels crawling or aching feelings in her legs. She feels leg pain at night. She occasionally has morning jaw pain, and never grinds her teeth at night. She constantly feels bothered by pain during the day, is frequently awakened by pain during the night. She constantly wakes up feeling stiff in the morning, constantly wakes feeling sore or achy in the morning. She constantly awakens with pain in her neck, spine, or joints. Normal bedtime is 10:00 p.m., taking hours to fall asleep, waking at least 3 times during the night for unclear reasons. When she awakens at night she may get up, she may watch television or listen to music. It may take hours to return to sleep. Her normal wake time is 5:00 a.m.. On weekends, bedtime is 11:00 p.m. and wake time is 6:00 a.m.. She estimates getting 4 hours of sleep at night. she takes naps in the afternoon or evening however short 10-15 minute nap is not refreshing. She is usually drowsy for 3 hours after waking. She feels better in the evening compared to other times of day. Habits:??Tobacco: former use, quit 2 months ago Caffeine:3 servings per day Alcohol: none Recreational substances: none [facility] Past Medical History Medical History (Updated 07/15/25 @ 10:03 by Suzette Dia MD) History of hemolytic anemia IBS (irritable bowel syndrome) Gastritis COPD (chronic obstructive pulmonary disease) Neuropathy Spinal stenosis Bipolar disorder Obstructive sleep apnea Surgical History Surgical History (Updated 07/11/25 @ 21:13 by Suzette Dia MD) H/O cardiac radiofrequency ablation S/P insertion of spinal cord stimulator Hx of cholecystectomy History of hysterectomy Social History Social History (Updated 07/11/25 @ 21:13 by Suzette Dia MD) Smoking status: Former smoker Alcohol intake: never Substance use: never Medications Medications: Patient provided a handwritten list of medications: gabapentin 400 mg t.i.d. Vraylar 4.5 mg daily Cymbalta 60 mg daily Klonopin 0.5 mg b.i.d. amitriptyline 150 mg HS Sleep Procedure A full night polysomnogram using the [place] [employer] multi-channel system recorded the standard physiologic parameters including EEG, EOG, submentalis EMG, anterior tibialis EMG, EKG, body position, nasal and oral airflow using nasal pressure sensor and thermistor. Respiratory parameters of chest and abdominal movements were recorded with Respiratory Inductance Plethysmography belts. Oxygen saturation was recorded by pulse oximetry. Video monitoring was also performed. Sleep stages, periodic limb movements, and EEG arousals were scored in 30 second epochs according to the criteria of the AASM Scoring Manual. The Apnea-Hypopnea Index was calculated using CMS guidelines for definition of hypopnea while scoring respiratory events. The patient did not qualify for CPAP titration early enough in the night so this was conducted as a full night basic polysomnogram. Sleep Architecture The total recording time was 458.3 minutes. The total sleep time was 415.5 minutes. Sleep latency was 33.3 minutes. REM latency was - minutes. Sleep efficiency was 90.7%. The patient had 6 awakenings for an awakening index of 0.9. Wake after sleep onset time was 10.0 minutes. The patient spent 5.0 minutes, 1.2% of total sleep time in Stage N1. The patient spent 174.0 minutes, 41.9% in Stage N2. The patient spent 236.5 minutes, 56.9% in Stage N3. The patient spent no time in Stage REM sleep. Respiratory Analysis The patient had 8 hypopneas, no obstructive apneas, 2 mixed apneas, and 189 central apneas for an overall Apnea Hypopnea Index of 28.7. The REM Apnea Hypopnea Index was 0, as she had no REM. The NREM Apnea Hypopnea Index was 28.7. The patient had a Central Apnea Hypopnea Index of 27.3. There were no Respiratory Effort Related Arousals. The Respiratory Disturbance Index is 29.9 events per hour. There was no evidence of Amadeo-Oleary Respirations As the cycle length to qualify for Amadeo-Oleary respiration needs to be greater than 40 seconds however she had in the supine position on a 4 minute few breathing that appeared similar to Amadeo-Oleary breathing but the cycle length was 25 seconds much too short to be Amadeo-Oleary. Arousals There were 76 total arousals for an arousal index of 11.0. There were 60 spontaneous arousals for an index of 8.7. There were 10 arousals due to respiratory events for an index of 1.4. There were 1 arousals due to periodic limb movements for an index of 0.1. There were 5 arousals due to isolated limb movements for an index of 0.7. Periodic Limb Movements The patient had 42 isolated limb movements with an index of 6.1. The patient had 24 periodic limb movements with an index of 3.5. Patient had a total of 66 limb movements with a total limb movement index of 9.5. Oximetry Data The patient had an average oxygen saturation of 93.8% in sleep with a minimum oxygen saturation of 86% and a maximum oxygen saturation of 99%. The patient had 195 oxygen desaturations that were 4% or greater resulting in an Oxygen Desaturation Index of 28.2. The patient spent 4.1 minutes, 0.9% of total sleep time with an oxygen saturation below 88%. Snoring Profile Snoring was mild. Cardiac Profile The EKG showed normal sinus rhythm. The patient had an average pulse rate of 69.0 bpm with a minimum pulse of rate of 54.bpm and a maximum pulse rate of 97 bpm. No arrhythmias noted. EEG Profile Unremarkable, no evidence of seizures. 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 She uses Suboxone for pain control, was not on med list but she wrote this in on questionnaire about what meds she took on the day of testing. This was seen on her prescription drug monitoring profile. Her central apnea-hypopnea index is 27.3. This is much worse in the supine position, the supine index is 144.8. This patient should sleep in the lateral position. She should have a full night CPAP titration in the sleep lab, sleep aid available and no naps on the day of testing. Sleep hygiene measures are also recommended having a fixed wake time and sleep time with daytime activities. this patient has a history of sleep apnea, and I do not have the prior sleep study results so I am not certain if it was central apnea or obstructive or probably mixed. She was on CPAP previously and described having witnessed apneas. Echocardiogram is indicated as central sleep apnea can be associated with decreased LV function, stroke, medication use as in this situation with the Suboxone, and alcohol which she does not use. I do not want to miss problems with cardiac dysfunction even though we are assuming that her central sleep apneas all due to Suboxone. BMI is 35.2. Weight management is advised. Clinical data suggests that weight loss of 10% can reduce the severity of respiratory events and snoring and improve AHI by as much as 25%. (2) Restless leg syndrome: Code(s): G25.81 - Restless legs syndrome Status: Acute Assessment and Plan: Her sleep questionnaire indicates that she always has uncomfortable feelings in her legs, and this is consistent with restless legs syndrome.Ferritin level is indicated to exclude iron deficiency anemia as a contributing factor. Ferritin should be 75 ng/mL or greater. If ferritin is below this, iron supplementation should be given to achieve ferritin of 75 ng/mL. There are nonpharmacologic methods to treat limb movements including daily exercise, stretching calf muscles before bed, avoiding excessive amounts of caffeine and alcohol, vitamin B supplementation, magnesium lotion massaged into legs before bed, and use of a weighted blanket. Pharmacologic therapy is very effective for restless legs syndrome and limb movements during sleep and may include [id number] voltage-gated calcium channel ligands such as gabapentin which is preferable to dopaminergic agents which can have augmentation. Other treatments can include opioids and benzodiazepines. Data The data obtained during this sleep study is adequate for interpretation. Certification This sleep study has been reviewed by a board certified sleep medicine physician.
[2025-07-15 10:08] VITALS: BMI 35.2
== END 2025-06-19 06:32 | disposition home or self-care (01) ==
LOC: ANHCSM 08:23
PROVIDERS: PCP Family Medicine; Visit Provider Otolaryngology
DX: G47.33 Obstructive sleep apnea (adult) (pediatric) (principal); G47.31 Primary central sleep apnea; G25.81 Restless legs syndrome
CPT/HCPCS: 95810